=== PATIENT | female | born 1970 | race Caucasian/White ===

== ENCOUNTER 2019-07-03 15:32 | Inpatient (IN) | payer OTHER ==
[2019-07-03 17:33] VITALS: BMI 27.8
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
[2019-07-03] MEDS ORDERED: ALBUTEROL SO4 0.083% IH SOL 2.5 MG/3 ML VIAL.NEB. NEB PRN (19:19)
[2019-07-03] MEDS ORDERED: ALBUTEROL SO4 HFA INHALER IH PRN (19:20)
[2019-07-03] MEDS ORDERED: ACETAMINOPHEN 325 MG TABLET (FP) PO PRN ×2 (19:22)
[2019-07-03] MEDS ORDERED: MAGNESIUM CITRATE 300 ML BOTTLE PO PRN (19:22)
[2019-07-03] MEDS ORDERED: hydrOXYzine PAMOATE 25 MG CAPSULE (FP) PO PRN (19:22)
[2019-07-03] MEDS ORDERED: BISMUTH SUBSALICYLATE 524 MG/30 ML UD PO PRN (19:22)
[2019-07-03] MEDS ORDERED: IBUPROFEN 400 MG TABLET (FP) PO PRN (19:22)
[2019-07-03] MEDS ORDERED: MELATONIN 5 MG TABLETS PO PRN (19:22)
[2019-07-03] MEDS ORDERED: MAGNESIUM HYDROX 2400MG/30ML ORAL SUSPENSION 30 ML CUP PO PRN (19:22)
[2019-07-03] MEDS ORDERED: MAG HYDROX/AL HYDROX/SIMETH 30 ML UNIT-DOSE CUP PO PRN (19:22)
[2019-07-03] MEDS ORDERED: MENTHOL/PHENOL 1 EACH UD MM PRN (19:22)
[2019-07-03] MEDS ORDERED: METHOCARBAMOL 500 MG TABLET PO PRN (19:22)
[2019-07-03] MEDS ORDERED: cloNIDine HCL 0.1 MG TABLET PO PRN (19:25)
[2019-07-03] MEDS ORDERED: METHADONE HCL 10 MG TABLET (FOR DETOX USE ONLY) PO ONE (19:45)
[2019-07-03] MEDS: diazePAM 5 MG TABLET PO PRN (20:33)
[2019-07-03] MEDS ORDERED: THIAMINE HCL 100 MG TABLET (FP) PO SCH (22:00)
[2019-07-03] MEDS: diazePAM 5 MG TABLET PO SCH (22:51)
[2019-07-04] MEDS: diazePAM 5 MG TABLET PO PRN ×3 (03:18→16:48)
[2019-07-04] MEDS: diazePAM 5 MG TABLET PO SCH ×2 (05:39→13:42)
[2019-07-04] MEDS ORDERED: METHADONE HCL 5 MG TABLET (FOR DETOX USE ONLY) PO ONE (10:00)
[2019-07-04] MEDS ORDERED: PRENATAL VITAMINS W/ FOLIC ACID TABLET (FP) PO SCH (10:00)
[2019-07-04] MEDS ORDERED: NICOTINE 7 MG/24 HOURS TOPICAL PATCH TD SCH (10:00)
[2019-07-04] MEDS ORDERED: ACETAMINOPHEN 325 MG TABLET (FP) PO ONE (11:32)
--- NOTE | 2019-07-04 11:32 | PN ---
[facility] CIWA - CIWA Score Nausea/Vomitin-Mild Nausea/No Vomiting Muscle Tremors: 2 Anxiety: 4-Mod. Anxious/Guarded Agitation: 3 Paroxysmal Sweats: 1-Minimal Palms Moist Orientation: 0-Oriented Tacttile Disturbances: 0-None Auditory Disturbances: 0-None Visual Disturbances: 1-Very Mild Sensitivity Headache: 0-None Present CIWA-Ar Total Score: 12 S COWS - Scale Resting Pulse: 0= MA 80 or Below Sweatin= Chills/Flushing Restless Observation: 0= Sits Still Pupil Size: 1= Pupils >than Normal Bone or Joint Aches: 1= Mild Discomfort Runny Nose/ Eye Tearin= None GI Upset > 30mins: 1= Stomach Cramp Tremor Observation of Outstretched Hands: 1= Tremor [place], Not Seen Yawning Observation: 1= 1-2x During Session Anxiety or Irritability: 1=Feels Anxious/Irritable Goose Flesh Skin: 0=Smooth Skin COWS Score: 7 [facility] Progress Note (SOAP) Subjective: 48 years old female admitted on 07/03/19 for alcohol and opiate withdrawal sx management treating with valium and methadone detox regimen reports joints pain denies limitation of mobility tylenal 650mg po x 1 Objective: 07/04/19 11:35 Vital Signs Temperature 96.8 F L 07/04/19 09:07 Pulse Rate 75 07/04/19 09:07 Respiratory Rate 18 07/04/19 09:07 Blood Pressure 135/91 07/04/19 09:07 O2 Sat by Pulse Oximetry (%) Laboratory Last Values POC Urine HCG, Qual Negative 07/03/19 19:05 07/04/19 11:35 lab pending Assessment: 07/04/19 11:35 alcohol and opiate withdrawal Plan: valium and methadone regimens
[2019-07-04 12:31] LABS: HEMATOCRIT 45.7 % (32.4-45.2); HEMOGLOBIN 15.4 GM/dL (10.7-15.3); MCH 31.9 pg (25.7-33.7); MCHC 33.6 g/dl (32.0-36.0); MEAN CELL VOLUME 94.8 fl (80-96); MEAN PLT VOLUME 8.1 fl (7.5-11.1); PLATELET COUNT 328 K/MM3 (134-434); RBC 4.81 M/mm3 (3.60-5.2); RDW 13.2 % (11.6-15.6); WHITE BLOOD COUNT 5.7 K/mm3 (4.0-10.0)
[2019-07-04 12:33] LABS: ALBUMIN 3.7 g/dl (3.4-5.0); BILIRUBIN,TOTAL 0.4 mg/dL (0.2-1); BLOOD UREA NITROGEN 13.3 mg/dL (7-18); CALCIUM 9.3 mg/dL (8.5-10.1); CREATININE 0.8 mg/dL (0.55-1.3); POTASSIUM 3.8 mmol/L (3.5-5.1); TOT PROT 7.1 g/dl (6.4-8.2)
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
[2019-07-04 16:54] VITALS: BP 143/87; PULSE 72; TEMP 97.6
[2019-07-04] MEDS ORDERED: SUVOREXANT 10 MG TABLET PO PRN (22:00)
[2019-07-05] MEDS ORDERED: diazePAM 5 MG TABLET PO SCH (06:00)
[2019-07-05] MEDS ORDERED: METHADONE HCL 10 MG TABLET (FOR DETOX USE ONLY) PO ONE (10:00)
[2019-07-06] MEDS ORDERED: diazePAM 5 MG TABLET PO ONE (06:00)
[2019-07-06] MEDS ORDERED: METHADONE HCL 5 MG TABLET (FOR DETOX USE ONLY) PO ONE (06:00)
--- NOTE | 2019-07-06 10:31 | EKG ---
Test Reason : Blood Pressure : / mmHG Vent. Rate : 060 BPM Atrial Rate : 060 BPM P-R Int : 180 ms QRS Dur : 102 ms QT Int : 452 ms P-R-T Axes : 071 090 070 degrees QTc Int : 452 ms NORMAL SINUS RHYTHM WITH SINUS ARRHYTHMIA RIGHTWARD AXIS BORDERLINE ECG WHEN COMPARED WITH ECG OF 01-FEB-2018 15:30, QT HAS LENGTHENED Confirmed by KENDALL STACK, ANGELICA ([id number]) on 07/06/2019 10:31:26 AM Referred By: Confirmed By:ANGELICA ARGUETA MD
== END 2019-07-04 17:55 | disposition left against medical advice (07) | DRG 770 ==
LOC: YASAS 15:32 → Y3N 19:36
PROVIDERS: ADMIT Allergy & Immunology; ATTEND Allergy & Immunology
PROC: HZ2ZZZZ Detoxification Services for Substance Abuse Treatment (ICD-10-PCS; principal; 2019-07-03)
DX: F11.23 Opioid dependence with withdrawal (principal); F10.230 Alcohol dependence with withdrawal, uncomplicated; F17.210 Nicotine dependence, cigarettes, uncomplicated; F43.10 Post-traumatic stress disorder, unspecified; F19.24 Other psychoactive substance dependence with psychoactive substance-induced mood disorder; F19.282 Other psychoactive substance dependence with psychoactive substance-induced sleep disorder; D64.9 Anemia, unspecified; J45.909 Unspecified asthma, uncomplicated; Z86.69 Personal history of other diseases of the nervous system and sense organs
CPT/HCPCS: 36415; 80053; 81025; 85027; 86593; 93005; 93010